=== PATIENT | female | born 1990 | race Caucasian/White ===

== ENCOUNTER 2019-12-15 17:31 | Emergency (ER) | payer BC ==
[2019-12-15] MEDS ORDERED: IBUPROFEN 400 MG TABLET (FP) PO ONE ×2 (17:33→18:16)
--- NOTE | 2019-12-15 18:02 | PDOC ---
History of Present Illness - General Chief Complaint: Injury Stated Complaint: FINGER INJURY Time Seen by Provider: 12/15/19 17:40 History Source: Patient Exam Limitations: No Limitations - History of Present Illness Initial Comments: Pt is a 29 yo F, with no significant PMH, who is presenting with a R index finger avulsion. Pt was using a meat cutter at work and accidentally cut her finger, syncopizing when she saw the blood. Her coworkers called EMS and the pt was improved by that time. Pt states she only has pain at the distal fingertip and the bleeding was controlled after she placed pressure with a clean towel. Pt denies any fevers/chills, headache, vision changes, chest pain, palpitations, SOB, nausea/vomiting, abdominal pain, urinary symptoms, diarrhea/constipation, or leg swelling. Allergies: NKDA PCP: None UTD on vaccinations including tetanus. Social: Pt denies any cigarette, alcohol, or drug use. Pt denies any recent travel or sick contacts. Surgical: no relevant history. Family: no relevant history. 12/15/19 18:36 Past History - Travel History Traveled outside of the country in the last 30 days: No Close contact w/someone who was outside of country & ill: No - Medical History Allergies/Adverse Reactions: Allergies Allergy/AdvReac Type Severity Reaction Status Date / Time Penicillins Allergy Rash Verified 12/15/19 17:33 Home Medications: Ambulatory Orders Norethindrone-E.estradiol-Iron [Lo Loestrin Fe 1-10 Tablet] 1 tab PO DAILY 12/15/19 Review of Systems - Review of Systems Able to Perform ROS?: Yes Is the patient limited Serbian proficient: No Constitutional: Yes: Weight Stable. No: Chills, Fever, Loss of Appetite, Malaise, Weakness HEENTM: No: Recent change in vision, Nose Congestion, Throat Pain, Throat Swelling, Difficulty Swallowing Respiratory: No: Cough, Orthopnea, Shortness of Breath Cardiac (ROS): Yes: Syncope. No: Chest Pain, Edema, Irregular Heart Rate, Lightheadedness, Palpitations, Chest Tightness ABD/GI: No: Constipated, Diarrhea, Nausea, Poor Appetite, Poor Fluid Intake, Vomiting : No: Burning, Dysuria, Pain, Urgency Musculoskeletal: No: Back Pain, Joint Pain Integumentary: Yes: See HPI. No: Bruising, Erythema Neurological: No: Headache, Numbness, Weakness, Unsteady Gait, Dizziness Psychiatric: No: Sleep Pattern Change, Change in Appetite Endocrine: No: Increased Urine, Change in Weight Hematologic/Lymphatic: No: Anemia, Blood Clots, Easy Bleeding, Easy Bruising All Other Systems: Reviewed and Negative *Physical Exam - Physical Exam Vitals stable, pt afebrile. Pt in NAD, thin body habitus. Pt alert and oriented x3. 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 Radial, median, and ulnar distributions intact. No midline spinal tenderness, step-offs, or crepitus. Head normocephalic, atraumatic. Eyes PERRLA, EOMI. Oropharynx without erythema or exudates, no LAD b/l. No nasal congestion. Hearing intact. Clear heart sounds, S1/S2, no JVD, b/l pedal edema, or heart murmur. Clear lung sounds, no respiratory distress, wheezes, crackles, or accessory muscle use. No abdominal or CVA tenderness to palpation, no rebound, no guarding. Abdomen soft, non-distended, and with normoactive bowel sounds. Avulsion of palmar distal tip of R index finger. No disruption of the nailbed. Bleeding well-controlled. Skin otherwise without jaundice or rash. Cap refill <2 secs. Strong radial pulse b/l. 12/15/19 18:43 Procedures - Laceration/Wound Repair Right Volar 1st digit Wound Length: to 2.5 cm Wound Explored: clean, no foreign body present Wound's Depth, Shape: superficial, nail-avulsed Irrigated w/ Saline: Yes Betadine Prep: No Wound Debrided: minimal Wound Repaired With: Steri-strips (and surgi-cell) Number of Sutures: 0 Number of Deep Layer Sutures: 0 Sterile Dressing Applied: Yes Medical Decision Making - Medical Decision Making 29 yo F, presenting with avulsion injury of the distal fingertip from a meat cutter. Injury is superficial and pt has full motion of the finger, no concern for tuft injury at this time. No bone exposed. Pt UTD on tetanus vaccine. Wound cleaned with copious irrigation. Wound repaired with surgicell and steri-strips. Pt safe for d/c to home. Provided referrals for PCP and Hand (Dr. Mujica) if required. Strict return precautions provided with pt understanding. 12/15/19 18:44 Discharge - Discharge Information Problems reviewed: Yes Clinical Impression/Diagnosis: Fingertip avulsion Qualifiers: Encounter type: initial encounter Qualified Code(s): S61.209A - Unspecified open wound of unspecified finger without damage to nail, initial encounter Condition: Good Disposition: HOME - Admission No - Follow up/Referral Referrals: [facility] [place] [facility] [place] [Provider Group] Perez Mujica MD [Staff Physician] - - Patient Discharge Instructions Patient Printed Discharge Instructions: DI for Avulsion Laceration (Not Requiring Sutures) Additional Instructions: You were seen in the ER today for a fingertip injury, which was repaired with surgicell and steri-strips. The surgicell will fall off once the wound begins to form a scab. Please keep the area clean and dry, and you can wash your hands with regular soap and water. Please follow-up with your primary care doctor within 1-2 days to discuss your visit and make sure your symptoms have improved. I have also provided a referral to a hand specialist if the wound is not healing. Please return to the ER if you have any worsening pain, development of fevers or chills, redness or drainage from the area, loss of consciousness, inability to tolerate food or fluids, or any other concerns. You can take tylenol or motrin every 4-6 hours as needed for pain. - Post Discharge Activity
--- NOTE | 2019-12-15 18:05 | PDOC ---
Attending Attestation - Resident Resident Name: lEi Lauren - ED Attending Attestation I have performed the following: I have examined & evaluated the patient, The case was reviewed & discussed with the resident, I agree w/resident's findings & plan - HPI HPI: 12/15/19 18:03 29 YOF RH dominant with no sig med history presenting with right index finger laceration after slicing it at work as she works as buffet waiter/waitress. no paresthesias or weakness. bleeding controlled last tdap 4 years ago. 12/15/19 18:34 - Physicial Exam PE: 12/15/19 18:04 General: anxious Vascular: 2+ radialis pulses symmetric and equal. Neuro: distal program director cable television strength 5/5. sensation grossly intact in median/radial/ulnar distribution. MSK: soft compartments, Cap refill <2 sec. 2+ radialis pulses bilaterally and symmetric. FDP/FDS intact. no joint tenderness. FROM. Skin: color normal color, warm and well perfused. right distal index finger on pulp aspect with superficial soft tissue avulsion. no nailbed involvement or injury nonbleeding, nontender. - Medical Decision Making 12/15/19 18:05 wound/laceration assessed and repaired with surgicel, w/o complications, bleeding controlled. area cleaned and dried, dressings placed with topical bacitracin. monitor for signs of infection including fevers or chills, redness, streaking, swelling, purulence, malodor. keep dry x 24 hours, then may wash with soap and water 2-3X per day, topical antibiotics such as neosporin. motrin/tylenol for pain control. tetanus is also up to date. pt made aware of impression and plan. Discharge - Discharge Information Problems reviewed: Yes Clinical Impression/Diagnosis: Fingertip avulsion Qualifiers: Encounter type: initial encounter Qualified Code(s): S61.209A - Unspecified open wound of unspecified finger without damage to nail, initial encounter Condition: Good Disposition: HOME - Follow up/Referral Referrals: [facility] [place] [facility] [place] [Provider Group] Perez Mujica MD [Staff Physician] - - Patient Discharge Instructions Patient Printed Discharge Instructions: DI for Avulsion Laceration (Not Requiring Sutures) Additional Instructions: You were seen in the ER today for a fingertip injury, which was repaired with surgicell and steri-strips. The surgicell will fall off once the wound begins to form a scab. Please keep the area clean and dry, and you can wash your hands with regular soap and water. Please follow-up with your primary care doctor within 1-2 days to discuss your visit and make sure your symptoms have improved. I have also provided a referral to a hand specialist if the wound is not healing. Please return to the ER if you have any worsening pain, development of fevers or chills, redness or drainage from the area, loss of consciousness, inability to tolerate food or fluids, or any other concerns. You can take tylenol or motrin every 4-6 hours as needed for pain. - Post Discharge Activity
[2019-12-15] MEDS ORDERED: IBUPROFEN 600 MG TABLET (FP) PO ONE (18:12)
[2019-12-15 18:24] VITALS: BP 121/73; PULSE 71; TEMP 98.2; BMI 21.7
== END 2019-12-15 18:25 | disposition home or self-care (01) ==
LOC: FER 17:31
DX: S61.209A Unspecified open wound of unspecified finger without damage to nail, initial encounter (principal)
CPT/HCPCS: 99283-25

== ENCOUNTER 2020-10-16 21:38 | Emergency (ER) | payer BC, OTHER ==
[2020-10-16] MEDS ORDERED: SODIUM CHLORIDE 1,000 ML IV ONE ×2 (21:43→22:23)
[2020-10-16 22:05] VITALS: BP 130/86; PULSE 110; TEMP 99; BMI 24.3
[2020-10-16 22:09] LABS: BASO % 0.8 % (0-2.0); EOS % 1.2 % (0-4.5); HEMATOCRIT 32.5 % (32.4-45.2); HEMOGLOBIN 11.2 GM/dl (10.7-15.3); LYMPH % 17.2 % (8-40); MCH 30.8 pg (25.7-33.7); MCHC 34.4 g/dl (32.0-36.0); MEAN CELL VOLUME 89.4 fl (80-96); MEAN PLT VOLUME 9.6 fl (7.5-11.1); MONO % 7.7 % (3.8-10.2); NEUT % 73.1 % (42.8-82.8); PLATELET COUNT 204 10^3/uL (134-434); RBC 3.64 M/mm3 (3.60-5.2); RDW 12.1 % (11.6-15.6); WHITE BLOOD COUNT 5.6 K/mm3 (4.0-10.8)
[2020-10-16 22:18] LABS: ALBUMIN 3.3 g/dl (3.4-5.0); CALCIUM 8.6 mg/dl (8.5-10); CREATININE 0.6 mg/dl (0.55-1.3); TOT PROT 5.9 g/dl (6.4-8.2)
[2020-10-16] MEDS ORDERED: METOCLOPRAMIDE HCL INJECTION 10 MG/2 ML VIAL IVPUSH ONE (22:19)
[2020-10-16] MEDS ORDERED: METOCLOPRAMIDE HCL INJECTION 10 MG/2 ML VIAL ONE (22:22)
[2020-10-16] MEDS ORDERED: METOCLOPRAMIDE HCL INJECTION 10 MG/2 ML VIAL IVPB ONE (22:23)
[2020-10-16] MEDS ORDERED: DEXTROSE 5%-NORMAL SALINE 1,000 ML IV ONE (23:06)
[2020-10-17 00:50] LABS: PH,URINE 6.5 (5.0-8.0); URINE APPEARANCE CLEAR; URINE BILIRUBIN NEGATIVE (NEGATIVE); URINE COLOR YELLOW; URINE GLUCOSE (UA) 3+ (NEGATIVE); URINE KETONE 1+ (NEGATIVE); URINE LEUK ESTERASE NEGATIVE (NEGATIVE); URINE NITRITE NEGATIVE (NEGATIVE); URINE PROTEIN NEGATIVE (NEGATIVE); URINE UROBILINOGEN 0.2 mg/dL (0.2-1.0)
== END 2020-10-17 01:10 | disposition home or self-care (01) ==
LOC: FER 21:38
PROC: 3E033GC Introduction of Other Therapeutic Substance into Peripheral Vein, Percutaneous Approach (ICD-10-PCS; principal; 2020-10-16)
PROC: 3E033GC Introduction of Other Therapeutic Substance into Peripheral Vein, Percutaneous Approach (ICD-10-PCS; 2020-10-16)
PROC: 3E0337Z Introduction of Electrolytic and Water Balance Substance into Peripheral Vein, Percutaneous Approach (ICD-10-PCS; 2020-10-16)
PROC: 3E0337Z Introduction of Electrolytic and Water Balance Substance into Peripheral Vein, Percutaneous Approach (ICD-10-PCS; 2020-10-16)
DX: O21.1 Hyperemesis gravidarum with metabolic disturbance (principal); Z3A.11 11 weeks gestation of pregnancy
CPT/HCPCS: 36415; 80053; 81003; 85025; 99284-25